=== PATIENT | male | born 1950 | race Caucasian/White ===

== ENCOUNTER 2016-07-17 15:35 | Observation (INO) | payer MEDICARE ==
[~2016-07-17] VITALS: Ht 182.9 cm; Wt 83.5 kg
[2016-07-17] MEDS ORDERED: LACTATED RINGERS 1,000 ML IV SCH (16:03)
[2016-07-17] MEDS ORDERED: BUPIVACAINE/PF-EPI 0.25% 1:200K ONE ×3 (16:19→21:16)
[2016-07-17] MEDS ORDERED: BACITRACIN 50,000 UNIT ONE ×2 (16:19→20:34)
[2016-07-17] MEDS ORDERED: THROMBIN 5,000 UNIT VIAL TP ONE ×4 (16:19→21:18)
[2016-07-17] MEDS ORDERED: LIDOCAINE 1%, 2ML ONE (16:28)
[2016-07-17] MEDS ORDERED: LIDOCAINE 1%, 2ML SQ PRN (16:30)
[2016-07-17 16:49] VITALS: BP 149/96
[2016-07-17] MEDS ORDERED: APIX5TAB PO (17:06)
[2016-07-17] MEDS ORDERED: GABA300C10 PO (17:06)
[2016-07-17] MEDS ORDERED: DESM0.2T2 PO (17:06)
[2016-07-17] MEDS ORDERED: MONT10TA9 PO (17:06)
[2016-07-17] MEDS ORDERED: PRED1TAB PO (17:06)
[2016-07-17] MEDS ORDERED: CELE200C PO (17:06)
[2016-07-17] MEDS ORDERED: ESZO2TAB34 PO (17:06)
[2016-07-17 17:08] LABS: HEMOGLOBIN 13.8 g/dL (13.7-18.0)
[2016-07-17 17:20] LABS: BLOOD UREA NITROGEN 35 mg/dL (7-18)
[2016-07-17] MEDS ORDERED: FENTANYL PF 250 MCG/5ML ONE (18:15)
[2016-07-17] MEDS ORDERED: MIDAZOLAM 1 MG/ML, 2ML ONE (18:16)
[2016-07-17] MEDS ORDERED: PNEUMOCOCCAL 23 VACCINE IM-VACC ONE (20:30)
[2016-07-17] MEDS ORDERED: VANCOMYCIN 1,000 MG ONE (20:34)
[2016-07-17] MEDS ORDERED: CEFAZOLIN 1,000 MG ONE (20:53)
[2016-07-17] MEDS ORDERED: PROPOFOL 10 MG/ML, 20ML ONE (20:53)
[2016-07-17] MEDS ORDERED: GLYCOPYRROLATE 0.2MG/1ML ONE (20:53)
[2016-07-17] MEDS ORDERED: ROCURONIUM 10 MG/ML ONE (20:53)
[2016-07-17] MEDS ORDERED: NEOSTIGMINE 1 MG/ML, 10ML ONE (20:53)
[2016-07-17] MEDS ORDERED: HYDROmorphone 1 MG/ML, 1ML IV PRN (21:00)
[2016-07-17] MEDS ORDERED: MEPERIDINE/PF 25MG/0.5ML IVPush PRN (21:00)
[2016-07-17] MEDS ORDERED: LABETALOL 5MG/ML, 20ML IV PRN (21:00)
[2016-07-17] MEDS ORDERED: hydrALAzine 20 MG/ML, 1ML IV PRN (21:00)
[2016-07-17] MEDS ORDERED: FENTANYL PF 100 MCG/2ML IV PRN (21:00)
[2016-07-17] MEDS ORDERED: METOCLOPRAMIDE 5 MG/ML, 2ML IV PRN (21:00)
[2016-07-17] MEDS ORDERED: ONDANSETRON 2MG/ML, 2ML IVPush PRN ×2 (21:00→22:30)
[2016-07-17] MEDS ORDERED: PROMETHAZINE 25 MG/ML, 1ML IV PRN (21:00)
[2016-07-17] MEDS ORDERED: OXYcodone 5 MG/5 ML ORAL.SOL UDC PO PRN (21:00)
[2016-07-17] MEDS ORDERED: BUPIVACAINE/PF-EPI 0.25% 1:200K IM ONE (21:17)
[2016-07-17] MEDS ORDERED: BACITRACIN 50,000 UNIT IRRIG ONE (21:18)
[2016-07-17] MEDS ORDERED: VANCOMYCIN 1,000 MG IM ONE (21:19)
[2016-07-17] MEDS ORDERED: FENTANYL PF 100 MCG/2ML ONE (21:33)
[2016-07-17] MEDS ORDERED: OXYcodone 5 MG/5 ML ORAL.SOL UDC ONE (21:34)
[2016-07-17] MEDS ORDERED: HYDROmorphone PCA 30 MG/30 ML ONE (21:34)
[2016-07-17] MEDS ORDERED: DIPHENHYDRAMINE 50 MG/ML, 1ML IVPush PRN (22:30)
[2016-07-17] MEDS ORDERED: OXYcodone/APAP 5/325MG TABLET PO PRN (22:30)
[2016-07-17] MEDS ORDERED: HYDROmorphone PCA 30 MG/30 ML IV PRN (22:30)
[2016-07-17] MEDS ORDERED: BISACODYL 10 MG SUPP PR PRN (22:30)
[2016-07-17] MEDS ORDERED: DIAZEPAM 5 MG/ML, 2ML IVPush PRN (22:30)
[2016-07-17] MEDS ORDERED: MEPERIDINE/PF 100 MG/ML IM PRN (22:30)
[2016-07-17] MEDS ORDERED: PROMETHAZINE 25 MG/ML, 1ML IM PRN (22:30)
[2016-07-17] MEDS ORDERED: DIAZEPAM 5 MG TABLET PO PRN (22:30)
[2016-07-17] MEDS ORDERED: PHARMACY MAY ADJ FOR RENAL FX MC PRN (22:30)
[2016-07-17] MEDS ORDERED: TIZANIDINE 4MG TABLET PO PRN (22:30)
[2016-07-17] MEDS ORDERED: HYDROcodone/APAP 10/325 MG TABLET PO PRN (22:30)
[2016-07-17] MEDS ORDERED: MAGNESIUM HYDROXIDE 8%, 30ML UDC PO PRN (22:30)
[2016-07-17] MEDS ORDERED: MEPERIDINE/PF 25MG/0.5ML ONE (22:45)
[2016-07-18] MEDS: DESMOPRESSIN 0.2 MG TABLET PO SCH ×4 (00:13→16:30)
[2016-07-18] MEDS: NS + 20MEQ KCL 1,000 ML IV SCH ×2 (01:31→08:10)
[2016-07-18 04:35] VITALS: BP 133/69
[2016-07-18] MEDS: CEFAZOLIN PMX 1GM/50ML 50 ML IVPB SCH ×2 (05:03→13:41)
[2016-07-18 07:26] VITALS: BP 117/74
[2016-07-18] MEDS ORDERED: OXYC1TAB9 PO (08:23)
[2016-07-18] MEDS ORDERED: SODIUM CHLORIDE FLUSH 10ML SYR IVF SCH (09:00)
[2016-07-18] MEDS ORDERED: SENNA/DOCUSATE TABLET PO SCH (09:00)
[2016-07-18] MEDS ORDERED: MONTELUKAST 10 MG TABLET PO SCH (09:00)
[2016-07-18] MEDS ORDERED: GABAPENTIN 300 MG CAPSULE PO SCH (09:00)
[2016-07-18] MEDS ORDERED: OXYcodone/APAP 10/325MG TABLET PO PRN (09:30)
[2016-07-18 12:39] VITALS: BP 131/82
[2016-07-18 15:54] VITALS: BP 129/76
[2016-07-18] MEDS ORDERED: ZOLPIDEM 5MG TABLET PO SCH (21:00)
== END 2016-07-18 16:45 | disposition home or self-care (01) ==
LOC: INTOOBSV 15:35 → ORIP 15:35 → 4NOR 23:50 → DCLOUNGE 07-18 16:15
PROVIDERS: ADMIT Neurological Surgery; ATTEND Neurological Surgery
DX: M48.06 Spinal stenosis, lumbar region (principal); J02.9 Acute pharyngitis, unspecified; Z98.890 Other specified postprocedural states; Z82.49 Family history of ischemic heart disease and other diseases of the circulatory system; Z83.3 Family history of diabetes mellitus; Z80.9 Family history of malignant neoplasm, unspecified; Z23 Encounter for immunization
CPT/HCPCS: 36415; 63047; 72100; 80048; 81003; 82962; 85025; 85610; 85730; 90471; 90732; 96365; 96375; 97161; 97165; G0378; J0690; J1170; J2175; J2250; J2704; J2710; J3010; J3370; J3480; J3490; J7120

== ENCOUNTER 2018-08-12 13:07 | Day surgery (SDC) | payer MEDICARE ==
[~2018-08-12] VITALS: Ht 182.9 cm; Wt 84.0 kg
[~2018-08-12 13:07] MED LIST: APIX5TAB PO; CELE200C PO; DESM0.2T5 PO; DIAZ10TA PO; ESZO2TAB22 PO; GABA300C10 PO; HYDR5TAB7 PO; MONT10TA9 PO; OXYC-305 PO; OXYC-432 PO; PRED1TAB PO
[2018-08-12] MEDS ORDERED: DEXAMETHASONE 4 MG/ML, 1ML ONE (13:28)
[2018-08-12] MEDS ORDERED: MIDAZOLAM 1 MG/ML, 2ML ONE (13:28)
[2018-08-12] MEDS ORDERED: ROCURONIUM 10MG/ML,5ML ONE (13:28)
[2018-08-12] MEDS ORDERED: GLYCOPYRROLATE 0.2MG/1ML, 5ML ONE (13:28)
[2018-08-12] MEDS ORDERED: FENTANYL PF 250 MCG/5ML ONE (13:28)
[2018-08-12] MEDS ORDERED: PROPOFOL 10 MG/ML, 20ML ONE (13:28)
[2018-08-12] MEDS ORDERED: EPHEDRINE 50 MG/ML, 1ML IVPush PRN (13:30)
[2018-08-12] MEDS ORDERED: METOCLOPRAMIDE 5 MG/ML, 2ML IV PRN (13:30)
[2018-08-12] MEDS ORDERED: OXYcodone 5 MG/5 ML ORAL.SOL UDC PO PRN ×2 (13:30→17:00)
[2018-08-12] MEDS ORDERED: EPHEDRINE 50 MG/ML, 1ML IM PRN (13:30)
[2018-08-12] MEDS ORDERED: MORPHINE SULFATE 4 MG/ML, 1ML IVPush PRN (13:30)
[2018-08-12] MEDS ORDERED: ALBUTEROL/IPRATROPIUM 2.5MG/0.5MG, 3 ML NPPB PRN (13:30)
[2018-08-12] MEDS ORDERED: HYDROmorphone 2 MG/ML, 1ML IVPush PRN (13:30)
[2018-08-12] MEDS ORDERED: FENTANYL PF 100 MCG/2ML IV PRN (13:30)
[2018-08-12] MEDS ORDERED: LABETALOL 5MG/ML, 20ML IV PRN (13:30)
[2018-08-12] MEDS ORDERED: ONDANSETRON 2MG/ML, 2ML IV PRN (13:30)
[2018-08-12] MEDS ORDERED: KETOROLAC 30 MG/1 ML IV PRN (13:30)
[2018-08-12] MEDS ORDERED: MEPERIDINE/PF 25MG/0.5ML IVPush PRN (13:30)
[2018-08-12] MEDS ORDERED: DEXAMETHASONE 4 MG/ML, 1ML IV PRN (13:30)
[2018-08-12] MEDS ORDERED: DIPHENHYDRAMINE 50 MG/ML, 1ML IVPush PRN ×2 (13:30→17:00)
[2018-08-12] MEDS ORDERED: hydrALAzine 20 MG/ML, 1ML IV PRN (13:30)
[2018-08-12] MEDS ORDERED: HYDROcodone/APAP 7.5-325MG/15ML UDC PO PRN (13:30)
[2018-08-12] MEDS ORDERED: MIDAZOLAM 1 MG/ML, 2ML IV PRN (13:30)
[2018-08-12] MEDS ORDERED: LIDOCAINE 1%, 20ML ONE (13:37)
[2018-08-12] MEDS ORDERED: LACTATED RINGERS 1,000 ML IV SCH (13:39)
[2018-08-12 13:41] VITALS: BP 135/82
[2018-08-12] MEDS ORDERED: LIDOCAINE-MPF 1%, 2ML INFIL ONE (14:00)
[2018-08-12] MEDS ORDERED: BUPIVACAINE/PF-EPI 0.5% 1:200K ONE (14:25)
[2018-08-12] MEDS ORDERED: BUPIVACAINE/EPI 0.5% 1:200K ONE (14:25)
[2018-08-12] MEDS ORDERED: GENTAMICIN 80 MG/2 ML ONE (14:26)
[2018-08-12 15:02] LABS: ALANINE AMINOTRANSFERASE 63 U/L (12-78); ALBUMIN 3.8 g/dL (3.4-5.0); ANION GAP 5 mmol/L (5-15); CALCIUM 8.8 mg/dL (8.5-10.1); CHLORIDE 110 mmol/L (98-107)
[2018-08-12 15:05] LABS: ALKALINE PHOSPHATASE 42 U/L (45-117); BILIRUBIN,TOTAL 1.4 mg/dL (0.2-1.0); TOTAL PROTEIN 6.6 g/dL (6.4-8.2)
[2018-08-12] MEDS ORDERED: ONDANSETRON 2MG/ML, 2ML IVPush PRN (17:00)
== END 2018-08-12 18:30 | disposition home or self-care (01) ==
LOC: OUT 13:07
PROVIDERS: ATTEND Surgery
DX: K43.2 Incisional hernia without obstruction or gangrene (principal); Z79.899 Other long term (current) drug therapy; Z79.01 Long term (current) use of anticoagulants; Z98.890 Other specified postprocedural states; Z86.73 Personal history of transient ischemic attack (TIA), and cerebral infarction without residual deficits; N40.0 Benign prostatic hyperplasia without lower urinary tract symptoms
CPT/HCPCS: 49560; 49568; 64585; 64595; 80053; 82962; 88300; 93005; J1100; J2250; J2704; J3010; J7120; J1580